=== PATIENT | male | born 1955 | race Caucasian/White ===

== ENCOUNTER 2018-11-22 11:26 | Day surgery (SDC) | payer BC ==
[~2018-11-22] VITALS: Ht 188 cm; Wt 72.6 kg
[~2018-11-22 11:26] MED LIST: ASPIRIN81 MG PO; LISINOPRIL20 MG PO; METOPROL TAR25 MG PO
[2018-11-22 13:28] VITALS: BP 106/57
== END 2018-11-22 13:39 | disposition home or self-care (01) | DRG 951 ==
LOC: ENDO 11:26 → ORM 16:30
PROVIDERS: ATTEND Internal Medicine Gastroenterology
PROC: 0DBN8ZX Excision of Sigmoid Colon, Via Natural or Artificial Opening Endoscopic, Diagnostic (ICD-10-PCS; principal; 2018-11-22)
PROC: 0DB48ZX Excision of Esophagogastric Junction, Via Natural or Artificial Opening Endoscopic, Diagnostic (ICD-10-PCS; 2018-11-22)
PROC: 0DB78ZX Excision of Stomach, Pylorus, Via Natural or Artificial Opening Endoscopic, Diagnostic (ICD-10-PCS; 2018-11-22)
DX: Z12.11 Encounter for screening for malignant neoplasm of colon (principal); K63.5 Polyp of colon; K57.30 Diverticulosis of large intestine without perforation or abscess without bleeding; K64.4 Residual hemorrhoidal skin tags; K64.8 Other hemorrhoids; K21.9 Gastro-esophageal reflux disease without esophagitis; K29.70 Gastritis, unspecified, without bleeding; I10 Essential (primary) hypertension; Z86.010 Personal history of colon polyps